=== PATIENT | female | born 1990 | race Caucasian/White ===

== ENCOUNTER → 2017-09-16 23:05 | Observation (INO) ==
--- NOTE | 2017-09-16 22:31 | OB/GYN Progress Note ---
Date of Encounter: 09/16/17 Time of Encounter: 22:30 - Assessment and Plan (1) 28 weeks gestation of Current Visit: Yes Status: Acute patient is a 27y/o @ 28 weeks presented for decreased FM, FHT CAT 1, no LOF, VB or ctxs ok for discharge Objective - Vital Signs Vital Signs: Intake and Output 09/16/17 09/16/17 09/16/17 07:59 15:59 23:59 Other: Weight 110 kg Patient Weight 09/16/17 23:59 Weight 110 kg
[2017-09-16 22:41] LABS: Bilirubin,Urine Negative (Negative); Blood,Urine Negative (Negative); Clarity,Urine Clear (Clear); Color,Urine Yellow (Yellow); Glucose,Urine (UA) Normal (Normal); Ketones,Urine Negative (Negative); Leukocyte Esterase,Urine Small (Negative); Nitrite,Urine Negative (Negative); PH,Urine 6.5 pH Units (5.0-8.0); Protein,Urine Negative (Neg-Trace); Specific Gravity,Urine 1.012 (1.010-1.025); Urobilinogen,Urine Normal (Normal)
[2017-09-16 22:44] LABS: Bacteria,Urine Few per hpf (None-Few); Hyaline Casts,Urine None Seen per lpf (None-Few); Squamous Epithelial Cell,Urine Many per lpf (None-Few)
[2017-09-16 22:48] LABS: Amphetamine Screen,Urine Negative ng/mL (Cutoff=1000); Barbiturate Screen,Urine Negative ng/mL (Cutoff=200); Benzodiazepines Screen,Urine Negative ng/mL (Cutoff=200); Cannabinoid Screen,Urine Negative ng/mL (Cutoff = 50); Cocaine Screen,Urine Negative ng/mL (Cutoff= 300); Opiate Screen,Urine Negative ng/mL (Cutoff=300); Phencyclidine Screen,Urine Negative ng/mL (Cutoff=25)
== END | disposition home or self-care (01) ==
LOC: 1NENULAB
PROVIDERS: ADMIT Student in an Organized Health Care Education/Training Program; ATTEND Student in an Organized Health Care Education/Training Program

== ENCOUNTER → 2017-09-29 22:15 | Observation (INO) ==
[2017-09-29 19:48] VITALS: BP 141/72
[2017-09-29 20:04] LABS: Bilirubin,Urine Negative (Negative); Blood,Urine Large (Negative); Clarity,Urine Cloudy (Clear); Color,Urine Yellow (Yellow); Glucose,Urine (UA) Normal (Normal); Ketones,Urine 15 mg/dL (Negative); Leukocyte Esterase,Urine Trace (Negative); Nitrite,Urine Negative (Negative); Protein,Urine Negative (Neg-Trace); Specific Gravity,Urine 1.012 (1.010-1.025); Urobilinogen,Urine Normal (Normal)
[2017-09-29 20:06] LABS: Bacteria,Urine Few per hpf (None-Few); Hyaline Casts,Urine None Seen per lpf (None-Few); Squamous Epithelial Cell,Urine Many per lpf (None-Few)
[2017-09-29 20:09] LABS: Amphetamine Screen,Urine Negative ng/mL (Cutoff=1000); Barbiturate Screen,Urine Negative ng/mL (Cutoff=200); Benzodiazepines Screen,Urine Negative ng/mL (Cutoff=200); Cannabinoid Screen,Urine Negative ng/mL (Cutoff = 50); Cocaine Screen,Urine Negative ng/mL (Cutoff= 300); Opiate Screen,Urine Negative ng/mL (Cutoff=300); Phencyclidine Screen,Urine Negative ng/mL (Cutoff=25)
[2017-09-29 20:19] LABS: RBC,Urine TNTC per hpf (0-3)
--- NOTE | 2017-09-29 20:49 | OB/GYN Progress Note ---
Date of Encounter: 09/29/17 Time of Encounter: 20:46 - Assessment and Plan (1) 29 weeks gestation of Current Visit: Yes Status: Acute Patient receives care with Dr. Chacon and [facility] (2) Abdominal pain affecting , antepartum Current Visit: Yes Status: Acute After exam, this is thought to be secondary to a UTI and hematuria. Patient is to increase oral fluids and will be given a prescription for antibiotics. Urine culture pending (3) Acute cystitis with hematuria Current Visit: Yes Status: Acute Culture pending. Start Macrobid as patient is allergic to cephalosporins and penicillin (4) History of delivery, currently in third trimester Current Visit: Yes Status: Acute labor warnings, pelvic rest and specifically no intercourse until after 34 weeks, currently on progesterone treatment without cervical change (5) GDM, class A2 Current Visit: Yes Status: Acute Patient is on metformin and is followed by [facility] Subjective - Subjective Principal diagnosis: 29 wks 5 d abdominal pain Interval history: The pt is a 27 y/o @29w5d who presents to labor and delivery with complaints of flank pain earlier today which changed to low back pain and suprapubic pain. She denies any gross hematuria. She reports a remote history of a kidney stone and never having had any UTIs. She reports some vaginal discharge but no vaginal bleeding. She has cramping on and off. She had a cervical length ultrasound which showed [address] Chacon last week. She had intercourse this morning. She reports that she has never been told to have pelvic rest. She has a history of 2 deliveries at 33 and 34 weeks and is currently on progesterone injections. She reports the fetus is active. Antepartum ROS: movement normal, contractions, no loss of fluid, no vaginal bleeding Objective - Vital Signs Vital Signs: Vital Signs Temp Pulse Resp BP 09/29/17 19:37 97.6 F 96 16 141/72 Intake and Output 09/29/17 09/29/17 09/29/17 07:59 15:59 23:59 Other: Weight 110 kg Patient Weight 09/29/17 23:59 Weight 110 kg - Exam FHR: auscultation normal FHR comments: 140s baseline, reassuring, rare ctx Auscultation: bilateral: normal Abdomen: Present: soft, gravid. Absent: tenderness Uterus: Absent: tenderness Cervical dilation: Closed Cervix effacement: Thick station: High Comments: Physiologic discharge, vaginosis panel obtained, no bleeding noted, no cervical lesions - Labs Labs: Abnormal lab results Urine Clarity Cloudy (Clear) A 09/29/17 19:50 Urine Ketones 15 mg/dL (Negative) H 09/29/17 19:50 Urine Blood Large (Negative) H 09/29/17 19:50 Ur Leukocyte Esterase Trace (Negative) H 09/29/17 19:50 Urine Microscopic RBC TNTC per hpf (0-3) H 09/29/17 19:50 Urine Microscopic WBC 5-15 per hpf (0-3) H 09/29/17 19:50 Ur Squamous Epith Cells Many per lpf (None-Few) H 09/29/17 19:50 Ur Culture Indicated? YES (NO) A 09/29/17 19:50 - Allied health notes Allied health notes reviewed: nursing
[2017-09-29 21:46] LABS: Trichomonas DNA Not Detected (Not Detect)
[2017-09-29 21:47] LABS: Candida DNA Not Detected (Not Detect); Gardnerella DNA ***DETECTED*** (Not Detect)
[~2017-09-29 22:15] MED LIST: Acetaminophen 325 MG TABLET PO ONE; Nitrofurantoin (BID) 100 MG CAPSULE PO SCH
== END | disposition home or self-care (01) ==
LOC: 1NENULAB
PROVIDERS: ADMIT Obstetrics & Gynecology; ATTEND Obstetrics & Gynecology

== ENCOUNTER → 2017-10-14 00:43 | Observation (INO) ==
[2017-10-13 22:45] LABS: Bilirubin,Urine Small (Negative); Blood,Urine Negative (Negative); Clarity,Urine Clear (Clear); Color,Urine Dark Yellow (Yellow); Glucose,Urine (UA) Normal (Normal); Ketones,Urine 40 mg/dL (Negative); Leukocyte Esterase,Urine Negative (Negative); Nitrite,Urine Negative (Negative); Protein,Urine Negative (Neg-Trace); Specific Gravity,Urine 1.022 (1.010-1.025)
[2017-10-13 22:50] LABS: Amphetamine Screen,Urine Negative ng/mL (Cutoff=1000); Barbiturate Screen,Urine Negative ng/mL (Cutoff=200); Benzodiazepines Screen,Urine Negative ng/mL (Cutoff=200); Cannabinoid Screen,Urine Negative ng/mL (Cutoff = 50); Cocaine Screen,Urine Negative ng/mL (Cutoff= 300); Opiate Screen,Urine Negative ng/mL (Cutoff=300); Phencyclidine Screen,Urine Negative ng/mL (Cutoff=25)
[2017-10-13 22:52] LABS: Basophils % 0.1 %; Eosinophils # 0.2 K/mcL (0.0-0.6); Hematocrit 30.3 % (35.3-44.9); Hemoglobin 10.2 g/dL (11.5-15.4); Immature Granulocytes % 0.7 % (0-4); Lymphocytes # 1.9 K/mcL (0.6-4.6); Lymphocytes % 22.4 %; Mean Corpuscular HGB Conc 33.7 g/dL (31.6-35.5); Mean Corpuscular Hemoglobin 30.7 pg (28.0-33.3); Mean Corpuscular Volume 91.3 fL (83.0-100.0); Mean Platelet Volume 9.6 fL (9.4-12.4); Monocytes # 0.7 K/mcL (0.0-1.3); Monocytes % 8.7 %; Neutrophils # 5.5 K/mcL (1.6-8.9); Platelet Count 146 K/mcL (140-400); Red Blood Count 3.32 M/mcL (3.82-4.97); Red Cell Distribution Width 16.8 % (11.5-14.5); Segmented Neutrophils % 66.1 %
[2017-10-13 23:00] LABS: Protein/Creatinine Ratio,Urine 0.12 mg/mg (0-0.20)
[2017-10-13 23:03] LABS: Alanine Aminotransferase 12 Units/L (0-55); Aspartate Amino Transferase 14 Units/L (5-34); BUN/Creatinine Ratio 13 (6-26); Blood Urea Nitrogen 7 mg/dL (7-20); Lactate Dehydrogenase 228 Units/L (159-327); Uric Acid 4.7 mg/dL (2.6-6.0); eGFR For African Americans > 60 (> 60); eGFR For Non-African Americans > 60 (> 60)
--- NOTE | 2017-10-14 00:13 | OB/GYN Progress Note ---
Date of Encounter: 10/14/17 Time of Encounter: 00:09 - Assessment and Plan (1) 31 weeks gestation of Current Visit: Yes Status: Acute (2) induced hypertension Current Visit: Yes Status: Acute Pt with recent increase in BP above her baseline. This evening bp's stable and acceptable on l&D. She has off and on GUEVARA but has tried no meds. PIH labs WNL Qualifiers: Trimester: third trimester Qualified Code(s): O13.3 - Gestational [ -induced] hypertension without significant proteinuria, third trimester (3) History of delivery, currently in third trimester Current Visit: No Status: Acute Pt with irritability on the monitor. Will give Procardia x 1. Her cervix was 2.9 cm yest at [facility] and is closed and thick today. Subjective - Subjective Principal diagnosis: uc's and elevated bp's at [employer] while shopping. Interval history: 27 yo female at 31 w 4d presents with c/o elevated bp 140's/90's while shopping at [employer]. She also c/o GUEVARA that is off and on, pt also reports sinus congestion. Pt also reports some cramps and has h/o delivery x 2. She reports + GFM, no vb or lof Objective - Vital Signs Vital Signs: Intake and Output 10/13/17 10/13/17 10/14/17 15:59 23:59 07:59 Other: Weight 107.7 kg - Exam FHR: category 1 Auscultation: bilateral: normal Abdomen: Present: gravid Uterus: Present: other (non-tender) Cervical dilation: cl Cervix effacement: thick station: -2 - Labs Labs: Abnormal lab results RBC 3.32 M/mcL (3.82-4.97) L 10/13/17 22:37 Hgb 10.2 g/dL (11.5-15.4) L 10/13/17 22:37 Hct 30.3 % (35.3-44.9) L 10/13/17 22:37 RDW 16.8 % (11.5-14.5) H 10/13/17 22:37 Creatinine 0.53 mg/dL (0.57-1.11) L 10/13/17 22:37 Urine Ketones 40 mg/dL (Negative) H 10/13/17 22:35 Urine Bilirubin Small (Negative) H 10/13/17 22:35 Urine Urobilinogen 4.0 mg/dL (Normal) H 10/13/17 22:35
[~2017-10-14 00:43] MED LIST changes: -Acetaminophen 325 MG TABLET PO ONE; +NIFEdipine 10 MG CAPSULE PO ONE; -Nitrofurantoin (BID) 100 MG CAPSULE PO SCH
== END | disposition home or self-care (01) ==
LOC: 1NENULAB
PROVIDERS: ADMIT Obstetrics & Gynecology; ATTEND Obstetrics & Gynecology

== ENCOUNTER 2017-11-09 00:42 | Observation (INO) ==
[2017-11-08 23:24] LABS: Bilirubin,Urine Negative (Negative); Blood,Urine Small (Negative); Color,Urine Yellow (Yellow); Glucose,Urine (UA) Normal (Normal); Ketones,Urine Negative (Negative); Leukocyte Esterase,Urine Negative (Negative); Nitrite,Urine Negative (Negative); PH,Urine 6.5 pH Units (5.0-8.0); Protein,Urine Negative (Neg-Trace); Specific Gravity,Urine 1.022 (1.010-1.025); Urobilinogen,Urine Normal (Normal)
[2017-11-08 23:26] LABS: Bacteria,Urine Few per hpf (None-Few); Hyaline Casts,Urine None Seen per lpf (None-Few); RBC,Urine 0-3 per hpf (0-3); Squamous Epithelial Cell,Urine Many per lpf (None-Few)
[2017-11-08 23:27] LABS: Clarity,Urine Hazy (Clear)
[2017-11-08 23:29] LABS: Amphetamine Screen,Urine Negative ng/mL (Cutoff=1000); Barbiturate Screen,Urine Negative ng/mL (Cutoff=200); Benzodiazepines Screen,Urine Negative ng/mL (Cutoff=200); Cannabinoid Screen,Urine Negative ng/mL (Cutoff = 50); Cocaine Screen,Urine Negative ng/mL (Cutoff= 300); Opiate Screen,Urine Negative ng/mL (Cutoff=300); Phencyclidine Screen,Urine Negative ng/mL (Cutoff=25)
--- NOTE | 2017-11-09 00:04 | OB/GYN Progress Note ---
Date of Encounter: 11/09/17 Time of Encounter: 23:10 - Assessment and Plan (1) Vaginal discharge during Current Visit: Yes Status: Acute Nitrazine equivocal. Ferning negative. UDS negative, UA negative, Vaginosis panel negative Cervix 4/50 per gold marker exam - no change after 2 hours FHT - Baseline 145 with variability and accels - Category I, NST reactive Pt can be discharged home with labor precautions I have seen and evaluated pt with resident physician. I agree with the plan as outlined. Qualifiers: Trimester: third trimester Qualified Code(s): O26.893 - Other specified related conditions, third trimester; N89.8 - Other specified noninflammatory disorders of vagina; N89.8 - Other specified noninflammatory disorders of vagina (2) 35 weeks gestation of Current Visit: Yes Status: Acute (3) History of delivery, currently in third trimester Current Visit: No Status: Acute Pt has been getting progesterone. Reports her final dose is due tomorrow Subjective - Subjective Principal diagnosis: Leakage of fluid Interval history: Ms. Torre is a 27 year old at 35w3d presenting to L&D with concerns of leaking fluid. She reports that around 1630 this afternoon she began leaking a small amount of fluid. She reports a few contractions soon after that time, 4 contractions at 4 minutes apart, but then they became much more irregular and spaced further apart. She reports good movement. She denies vaginal bleeding. She reports intercourse within the past 48 hours. This has been complicated by Gestational DM, on Metformin and Insulin, and proteinuria with negative work-up. She has a history of delivery with both prior pregnancies, at 32 and 33 weeks, and a history of preeclampsia in a prior . She has been getting progesterone during this . She denies fevers, chills, headaches, blurry vision, chest pain, dyspnea, abdominal pain, dysuria, or edema. Antepartum ROS: loss of fluid, movement normal, contractions, no vaginal bleeding Objective - Vital Signs Vital Signs: Intake and Output 11/08/17 11/08/17 11/08/17 07:59 15:59 23:59 Other: Weight 111.8 kg Patient Weight 11/08/17 23:59 Weight 111.8 kg - Exam FHR: auscultation normal, category 1 Auscultation: bilateral: normal Abdomen: Present: normal appearance, soft, gravid Uterus: Present: normal, firm Cervical dilation: 4 cm per gold marker Cervix effacement: 50 - Labs Labs: Abnormal lab results Urine Clarity Hazy (Clear) A 11/08/17 23:00 Urine Blood Small (Negative) H 11/08/17 23:00 Urine Microscopic WBC 3-5 per hpf (0-3) H 11/08/17 23:00 Ur Squamous Epith Cells Many per lpf (None-Few) H 11/08/17 23:00
[2017-11-09 00:22] LABS: Gardnerella DNA Not Detected (Not Detect); Trichomonas DNA Not Detected (Not Detect)
[2017-11-09 00:23] LABS: Candida DNA Not Detected (Not Detect)
== END 2017-11-09 00:48 | disposition home or self-care (01) ==
LOC: 1NENULAB
PROVIDERS: ADMIT Student in an Organized Health Care Education/Training Program; ATTEND Student in an Organized Health Care Education/Training Program

== ENCOUNTER → 2017-11-10 08:50 | Observation (INO) ==
[2017-11-09 22:57] VITALS: BP 149/91
--- NOTE | 2017-11-09 23:20 | OB/GYN Progress Note ---
Date of Encounter: 11/10/17 Time of Encounter: 23:16 - Assessment and Plan (1) Pelvic pressure in Current Visit: Yes Status: Acute No LOF, vaginal bleeding, vaginal discharge. Irregular contractions Cervix 4cm per RN - no change from last evening FHT - Baseline 140 with variability and accels - Category I, NST reactive Gans irregular No elevated Temp BP elevated 140-150's/80-90's initially - No symptoms of preeclampsia PIH labs negative, Urine Cr/Prot ratio 0.16 (2) 35 weeks gestation of Current Visit: Yes Status: Acute (3) History of delivery, currently in third trimester Current Visit: Yes Status: Acute Subjective - Subjective Principal diagnosis: Pelvic Pressure Interval history: Ms. Torre is a 27 year old at 35w4d presenting to L&D with concerns of pelvic pressure. She reports that she has also had some episodes of shakiness , but her blood sugar was not low, and flushing and chills. She reports good movement. She denies vaginal bleeding. This has been complicated by Gestational DM, on Metformin and Insulin, and proteinuria with negative work-up. She has a history of delivery with both prior pregnancies, at 32 and 33 weeks, and a history of preeclampsia in a prior . She has been getting progesterone during this . She denies fevers, headaches, blurry vision, chest pain, dyspnea, abdominal pain, dysuria, or edema. Antepartum ROS: movement normal, contractions, no loss of fluid, no vaginal bleeding Objective - Vital Signs Vital Signs: Vital Signs Pulse Resp BP 11/09/17 22:48 84 15 149/91 Intake and Output 11/09/17 11/09/17 11/09/17 07:59 15:59 23:59 Other: Weight 111.4 kg Patient Weight 11/09/17 23:59 Weight 111.4 kg - Exam FHR: auscultation normal, category 1 FHR comments: Baseline 140 with moderate variability and accels no decels noted- Category I Gans irregular I examined this patient and my medical decision-making was reviewed with the Resident Physician. I agree with the documented findings, disposition and treatment plan as described except to the extent set forth below. KRYS Crews Auscultation: bilateral: normal Abdomen: Present: normal appearance, soft, gravid. Absent: tenderness Uterus: Present: normal, firm Cervical dilation: 4 cm per RN
[2017-11-10 00:24] LABS: Basophils % 0.2 %; Eosinophils # 0.3 K/mcL (0.0-0.6); Eosinophils % 3.2 %; Hematocrit 33.2 % (35.3-44.9); Hemoglobin 11.1 g/dL (11.5-15.4); Immature Granulocytes % 0.6 % (0-4); Lymphocytes # 2.2 K/mcL (0.6-4.6); Lymphocytes % 21.5 %; Mean Corpuscular HGB Conc 33.4 g/dL (31.6-35.5); Mean Corpuscular Hemoglobin 30.4 pg (28.0-33.3); Mean Platelet Volume 9.5 fL (9.4-12.4); Monocytes # 0.8 K/mcL (0.0-1.3); Monocytes % 7.5 %; Neutrophils # 6.7 K/mcL (1.6-8.9); Platelet Count 160 K/mcL (140-400); Red Blood Count 3.65 M/mcL (3.82-4.97); Red Cell Distribution Width 17.4 % (11.5-14.5)
[2017-11-10 00:37] LABS: Alanine Aminotransferase 14 Units/L (0-55); Aspartate Amino Transferase 16 Units/L (5-34); BUN/Creatinine Ratio 10 (6-26); Blood Urea Nitrogen 6 mg/dL (7-20); Lactate Dehydrogenase 250 Units/L (159-327); Uric Acid 5.2 mg/dL (2.6-6.0); eGFR For African Americans > 60 (> 60); eGFR For Non-African Americans > 60 (> 60)
[2017-11-10 00:44] LABS: Amphetamine Screen,Urine Negative ng/mL (Cutoff=1000); Barbiturate Screen,Urine Negative ng/mL (Cutoff=200); Benzodiazepines Screen,Urine Negative ng/mL (Cutoff=200); Cannabinoid Screen,Urine Negative ng/mL (Cutoff = 50); Cocaine Screen,Urine Negative ng/mL (Cutoff= 300); Opiate Screen,Urine Negative ng/mL (Cutoff=300); Phencyclidine Screen,Urine Negative ng/mL (Cutoff=25)
[2017-11-10 00:45] LABS: Protein/Creatinine Ratio,Urine 0.16 mg/mg (0-0.20)
--- NOTE | 2017-11-10 08:29 | Discharge Summary ---
Date of Encounter: 11/10/17 Time of Encounter: 08:29 - Discharge Diagnosis (1) uterine contractions in third trimester, antepartum Priority: Primary Status: Acute Comments: No cervical change PIH labs normal - BP normal Discharge home with labor precautions Follow up with routine care and prn. NST scheduled on Sunday (2) 35 weeks gestation of Priority: Secondary Status: Acute - Discharge Medications Home Medications: Metformin HCl [Fortamet] 500 mg PO BID 09/16/17 [History] Tablet 1 tab PO DAILY 09/16/17 [History] Progesterone IM QWEEK 09/16/17 [History] Nitrofurantoin [Macrodantin] 100 mg PO BIDWM #14 capsule 09/29/17 [Rx] Allergies/Adverse Reactions: 3 Allergy/AdvReac Type Severity Reaction Status Date / Time Cefaclor [From [facility]] Allergy Hives Verified 09/16/17 22:20 Penicillins AdvReac Vomiting Verified 07/12/16 23:06 Data Procedures and tests throughout hospitalization: Laboratory Tests 11/10/17 11/10/17 11/10/17 00:15 00:15 00:26 WBC 10.1 RBC 3.65 L Hgb 11.1 L Hct 33.2 L MCV 91.0 MCH 30.4 MCHC 33.4 RDW 17.4 H Plt Count 160 MPV 9.5 Immature Gran % 0.6 Seg Neutrophils % 67.0 Lymphocytes % 21.5 Monocytes % 7.5 Eosinophils % 3.2 Basophils % 0.2 Neutrophils # 6.7 Lymphocytes # 2.2 Monocytes # 0.8 Eosinophils # 0.3 Basophils # 0.0 BUN 6 L Creatinine 0.59 Est GFR ( Amer) > 60 Est GFR (Non-Af Amer) > 60 BUN/Creatinine Ratio 10 Uric Acid 5.2 AST 16 ALT 14 Lactate Dehydrogenase 250 Urine Creatinine Protein/Creatinin Ratio Urine Total Protein Urine Opiates Screen Negative Ur Barbiturates Screen Negative Ur Phencyclidine Scrn Negative Ur Amphetamines Screen Negative U Benzodiazepines Scrn Negative Urine Cocaine Screen Negative U Marijuana (THC) Screen Negative 11/10/17 00:26 WBC RBC Hgb Hct MCV MCH MCHC RDW Plt Count MPV Immature Gran % Seg Neutrophils % Lymphocytes % Monocytes % Eosinophils % Basophils % Neutrophils # Lymphocytes # Monocytes # Eosinophils # Basophils # BUN Creatinine Est GFR ( Amer) Est GFR (Non-Af Amer) BUN/Creatinine Ratio Uric Acid AST ALT Lactate Dehydrogenase Urine Creatinine 174 Protein/Creatinin Ratio 0.16 Urine Total Protein 27 H Urine Opiates Screen Ur Barbiturates Screen Ur Phencyclidine Scrn Ur Amphetamines Screen U Benzodiazepines Scrn Urine Cocaine Screen U Marijuana (THC) Screen Labs on day of discharge: Labs from last 24 hours 11/10/17 11/10/17 11/10/17 00:26 00:26 00:15 WBC RBC Hgb Hct MCV MCH MCHC RDW Plt Count MPV Immature Gran % Seg Neutrophils % Lymphocytes % Monocytes % Eosinophils % Basophils % Neutrophils # Lymphocytes # Monocytes # Eosinophils # Basophils # BUN 6 L Creatinine 0.59 Est GFR ( Amer) > 60 Est GFR (Non-Af Amer) > 60 BUN/Creatinine Ratio 10 Uric Acid 5.2 AST 16 ALT 14 Lactate Dehydrogenase 250 Urine Creatinine 174 Protein/Creatinin Ratio 0.16 Urine Total Protein 27 H Urine Opiates Screen Negative Ur Barbiturates Screen Negative Ur Phencyclidine Scrn Negative Ur Amphetamines Screen Negative U Benzodiazepines Scrn Negative Urine Cocaine Screen Negative U Marijuana (THC) Screen Negative 11/10/17 00:15 WBC 10.1 RBC 3.65 L Hgb 11.1 L Hct 33.2 L MCV 91.0 MCH 30.4 MCHC 33.4 RDW 17.4 H Plt Count 160 MPV 9.5 Immature Gran % 0.6 Seg Neutrophils % 67.0 Lymphocytes % 21.5 Monocytes % 7.5 Eosinophils % 3.2 Basophils % 0.2 Neutrophils # 6.7 Lymphocytes # 2.2 Monocytes # 0.8 Eosinophils # 0.3 Basophils # 0.0 BUN Creatinine Est GFR ( Amer) Est GFR (Non-Af Amer) BUN/Creatinine Ratio Uric Acid AST ALT Lactate Dehydrogenase Urine Creatinine Protein/Creatinin Ratio Urine Total Protein Urine Opiates Screen Ur Barbiturates Screen Ur Phencyclidine Scrn Ur Amphetamines Screen U Benzodiazepines Scrn Urine Cocaine Screen U Marijuana (THC) Screen Date of admission: 11/09/17 22:36 Discharging clinician: Kristy Rivera Anticipated date of discharge: 11/10/17 - Patient Status Disposition: Home, Self-Care Condition: Good Functional capacity at discharge: independent ambulation Overall status at discharge: patient is back to baseline - Discharge Instructions Follow Up With: Andres Chaocn MD [Partnered Physician] - - Diet and Activity Activity: increase activity as tolerated Diet: regular diet Hospital Course [employer] Reason for admission: other ( contractions) Discharge diagnosis: other ( contractions) Time Attestation: Total time spent providing and/or coordinating discharge services: Time Spent: Less than 30 minutes Exam - Constitutional Vitals: Pulse Resp BP 84 15 149/91 11/09/17 22:48 11/09/17 22:48 11/09/17 22:48 General appearance IM: cooperative, A&O X 3, pleasant - Additional comments: 4-5/50/high FHTs Category I 130's Uterine irritability on toco. - Extremities Exam Extremities exam IM: Present: normal capillary refill, normal inspection, radial pulses palpable and symmetrical - Neurological Exam Neurological exam: alert, oriented X3 - VTE Reasons for not Prescribing Prophylaxis: Treatment not Indicated - Low risk for VTE
== END | disposition home or self-care (01) ==
LOC: 1NENULAB
PROVIDERS: ADMIT Obstetrics & Gynecology; ATTEND Obstetrics & Gynecology

== ENCOUNTER → 2017-11-15 12:30 | Observation (INO) ==
[2017-11-15 12:39] LABS: Basophils % 0.2 %; Eosinophils # 0.2 K/mcL (0.0-0.6); Eosinophils % 2.4 %; Hematocrit 32.9 % (35.3-44.9); Immature Granulocytes % 0.7 % (0-4); Lymphocytes # 1.5 K/mcL (0.6-4.6); Lymphocytes % 15.9 %; Mean Corpuscular HGB Conc 33.4 g/dL (31.6-35.5); Mean Corpuscular Hemoglobin 30.7 pg (28.0-33.3); Mean Corpuscular Volume 91.9 fL (83.0-100.0); Mean Platelet Volume 9.8 fL (9.4-12.4); Monocytes # 0.8 K/mcL (0.0-1.3); Monocytes % 8.2 %; Neutrophils # 6.9 K/mcL (1.6-8.9); Platelet Count 156 K/mcL (140-400); Red Blood Count 3.58 M/mcL (3.82-4.97); Red Cell Distribution Width 17.2 % (11.5-14.5); Segmented Neutrophils % 72.6 %
[2017-11-15 12:57] LABS: Protein/Creatinine Ratio,Urine 0.18 mg/mg (0.00-0.20)
[2017-11-15 13:01] LABS: Alanine Aminotransferase 10 Units/L (7-52); Amphetamine Screen,Urine Negative ng/mL (Cutoff=1000); Aspartate Amino Transferase 14 Units/L (13-39); BUN/Creatinine Ratio 16 (6-26); Barbiturate Screen,Urine Negative ng/mL (Cutoff=200); Benzodiazepines Screen,Urine Negative ng/mL (Cutoff=200); Blood Urea Nitrogen 8 mg/dL (6-20); Cannabinoid Screen,Urine Negative ng/mL (Cutoff = 50); Cocaine Screen,Urine Negative ng/mL (Cutoff= 300); Lactate Dehydrogenase 186 Units/L (140-271); Opiate Screen,Urine Negative ng/mL (Cutoff=300); Phencyclidine Screen,Urine Negative ng/mL (Cutoff=25); Uric Acid 5.7 mg/dL (2.3-7.6); eGFR For African Americans > 60 (> 60); eGFR For Non-African Americans > 60 (> 60)
--- NOTE | 2017-11-15 13:24 | Discharge Summary ---
Date of Encounter: 11/15/17 Time of Encounter: 13:24 - Discharge Diagnosis (1) 36 weeks gestation of Priority: Primary Status: Acute Comments: admitted for labor evaluation (2) GDM, class A2 Priority: Secondary Status: Acute Comments: Insulin dependant (3) uterine contractions in third trimester, antepartum Priority: Secondary Status: Acute Comments: false labor no cervical change (4) Gestational hypertension Priority: Secondary Status: Acute Comments: PIH labs and BPs with in normal limits Qualifiers: Trimester: third trimester Qualified Code(s): O13.3 - Gestational [ -induced] hypertension without significant proteinuria, third trimester - Discharge Medications Home Medications: Metformin HCl [Fortamet] 500 mg PO BID 09/16/17 [History] Tablet 1 tab PO DAILY 09/16/17 [History] Progesterone IM QWEEK 09/16/17 [History] Nitrofurantoin [Macrodantin] 100 mg PO BIDWM #14 capsule 09/29/17 [Rx] Allergies/Adverse Reactions: 3 Allergy/AdvReac Type Severity Reaction Status Date / Time Cefaclor [From [facility]] Allergy Hives Verified 09/16/17 22:20 Penicillins AdvReac Vomiting Verified 07/12/16 23:06 Data Procedures and tests throughout hospitalization: Laboratory Tests 11/15/17 11/15/17 11/15/17 12:15 12:15 12:15 WBC 9.5 RBC 3.58 L Hgb 11.0 L Hct 32.9 L MCV 91.9 MCH 30.7 MCHC 33.4 RDW 17.2 H Plt Count 156 MPV 9.8 Immature Gran % 0.7 Seg Neutrophils % 72.6 Lymphocytes % 15.9 Monocytes % 8.2 Eosinophils % 2.4 Basophils % 0.2 Neutrophils # 6.9 Lymphocytes # 1.5 Monocytes # 0.8 Eosinophils # 0.2 Basophils # 0.0 BUN 8 Creatinine 0.51 L Est GFR ( Amer) > 60 Est GFR (Non-Af Amer) > 60 BUN/Creatinine Ratio 16 Uric Acid 5.7 AST 14 ALT 10 Lactate Dehydrogenase 186 Urine Creatinine Protein/Creatinin Ratio Urine Total Protein Urine Opiates Screen Negative Ur Barbiturates Screen Negative Ur Phencyclidine Scrn Negative Ur Amphetamines Screen Negative U Benzodiazepines Scrn Negative Urine Cocaine Screen Negative U Marijuana (THC) Screen Negative 11/15/17 12:15 WBC RBC Hgb Hct MCV MCH MCHC RDW Plt Count MPV Immature Gran % Seg Neutrophils % Lymphocytes % Monocytes % Eosinophils % Basophils % Neutrophils # Lymphocytes # Monocytes # Eosinophils # Basophils # BUN Creatinine Est GFR ( Amer) Est GFR (Non-Af Amer) BUN/Creatinine Ratio Uric Acid AST ALT Lactate Dehydrogenase Urine Creatinine 99 Protein/Creatinin Ratio 0.18 Urine Total Protein 18 Urine Opiates Screen Ur Barbiturates Screen Ur Phencyclidine Scrn Ur Amphetamines Screen U Benzodiazepines Scrn Urine Cocaine Screen U Marijuana (THC) Screen Labs on day of discharge: Labs from last 24 hours 11/15/17 11/15/17 11/15/17 12:15 12:15 12:15 WBC 9.5 RBC 3.58 L Hgb 11.0 L Hct 32.9 L MCV 91.9 MCH 30.7 MCHC 33.4 RDW 17.2 H Plt Count 156 MPV 9.8 Immature Gran % 0.7 Seg Neutrophils % 72.6 Lymphocytes % 15.9 Monocytes % 8.2 Eosinophils % 2.4 Basophils % 0.2 Neutrophils # 6.9 Lymphocytes # 1.5 Monocytes # 0.8 Eosinophils # 0.2 Basophils # 0.0 BUN 8 Creatinine 0.51 L Est GFR ( Amer) > 60 Est GFR (Non-Af Amer) > 60 BUN/Creatinine Ratio 16 Uric Acid 5.7 AST 14 ALT 10 Lactate Dehydrogenase 186 Urine Creatinine 99 Protein/Creatinin Ratio 0.18 Urine Total Protein 18 Urine Opiates Screen Ur Barbiturates Screen Ur Phencyclidine Scrn Ur Amphetamines Screen U Benzodiazepines Scrn Urine Cocaine Screen U Marijuana (THC) Screen 11/15/17 12:15 WBC RBC Hgb Hct MCV MCH MCHC RDW Plt Count MPV Immature Gran % Seg Neutrophils % Lymphocytes % Monocytes % Eosinophils % Basophils % Neutrophils # Lymphocytes # Monocytes # Eosinophils # Basophils # BUN Creatinine Est GFR ( Amer) Est GFR (Non-Af Amer) BUN/Creatinine Ratio Uric Acid AST ALT Lactate Dehydrogenase Urine Creatinine Protein/Creatinin Ratio Urine Total Protein Urine Opiates Screen Negative Ur Barbiturates Screen Negative Ur Phencyclidine Scrn Negative Ur Amphetamines Screen Negative U Benzodiazepines Scrn Negative Urine Cocaine Screen Negative U Marijuana (THC) Screen Negative Date of admission: 11/15/17 11:45 Primary care physician: PCP NONE Discharging clinician: Giuliana Lynn Anticipated date of discharge: 11/15/17 - Patient Status Disposition: Home, Self-Care Condition: Good Functional capacity at discharge: independent ambulation - Discharge Instructions Follow Up With: NONE,PCP [Primary Care Provider] - Andres Chacon MD [Partnered Physician] - - Diet and Activity Activity: increase activity as tolerated Diet: regular diet Hospital Course [facility] Hospital course: Patient is a 27 y/o at 36w3d presents to labor and delivery from the office for Labor and PIH evaluation. Patient reports irregular contractions, denies LOF, VB, headache or visual disturbances. Patient reports +FM. Time Attestation: Total time spent providing and/or coordinating discharge services: Time Spent: Less than 30 minutes Exam - Constitutional General appearance IM: A&O X 3, pleasant, answers questions appropriately - Respiratory Respiratory exam: Present: CTAB - Cardiovascular Cardiovascular exam IM: Present: RRR, +S1, +S2 - GI/Abdominal GI/Abdominal exam IM: normal bowel sounds - Extremities Exam Extremities exam IM: Present: full ROM, normal capillary refill, normal inspection - Neurological Exam Neurological exam: alert, oriented X3, reflexes normal - Other Additional findings: FHR 140 bpm moderate variability, irregular contractions noted No cervical change. SVE 4cm and thick per RN - VTE Reasons for not Prescribing Prophylaxis: Treatment not Indicated - Low risk for VTE
== END | disposition home or self-care (01) ==
LOC: 1NENULAB
PROVIDERS: ADMIT Obstetrics & Gynecology; ATTEND Obstetrics & Gynecology

== ENCOUNTER → 2017-11-17 13:52 | Observation (INO) ==
--- NOTE | 2017-11-17 13:32 | Discharge Summary ---
Date of Encounter: 11/17/17 Time of Encounter: 13:31 - Discharge Diagnosis (1) Decreased movement Priority: Primary Status: Acute Comments: Patient reports feeling movement Qualifiers: Fetus number: single or unspecified fetus Trimester: third trimester Qualified Code(s): O36.8130 - Decreased movements, third trimester, not applicable or unspecified (2) NST (non-stress test) reactive on surveillance Priority: Secondary Status: Acute Comments: baslein 140 bpm moderate variability +15x15 accels no decels noted. - Discharge Medications Home Medications: Metformin HCl [Fortamet] 1,000 mg PO BID 09/16/17 [History] Tablet 1 tab PO DAILY 09/16/17 [History] Progesterone 1 IM QWEEK 09/16/17 [History] Insulin Lispro Protamin/Lispro [Humalog Mix 75-25 Kwikpen] 6 units SQ BID [History] Allergies/Adverse Reactions: 3 Allergy/AdvReac Type Severity Reaction Status Date / Time Cefaclor [From Ceclor] Allergy Hives Verified 11/17/17 12:22 Penicillins AdvReac Hives Verified 11/17/17 12:22 Date of admission: 11/17/17 12:03 Discharging clinician: Giuliana Lynn Anticipated date of discharge: 11/17/17 - Patient Status Disposition: Home, Self-Care Condition: Good Functional capacity at discharge: independent ambulation - Discharge Instructions Follow Up With: Andres Chacon MD [Partnered Physician] - - Diet and Activity Activity: increase activity as tolerated Diet: diabetic diet Hospital Course [employer] Hospital course: Patient is a 27 y/o at 36w5 presents to labor and delivery with complaints of decreased movement. Patient states she has felt movement and had 10 kick counts in an hour but it felt less than usual. Patient reports she was having contractions last night but only reports an occasional cramp today. Patient denies LOF or VB. Patient denies headache, visual disturbances or epigastric pain. Time Attestation: Total time spent providing and/or coordinating discharge services: Time Spent: Less than 30 minutes Exam - Constitutional General appearance IM: A&O X 3, pleasant, answers questions appropriately - Other Additional findings: FHR 140 bpm moderate variability +15x15 accels no decels noted. No contractions noted - VTE Reasons for not Prescribing Prophylaxis: Treatment not Indicated - Low risk for VTE
== END | disposition home or self-care (01) ==
LOC: 1NENULAB
PROVIDERS: ADMIT Advanced Practice Midwife; ATTEND Advanced Practice Midwife

== ENCOUNTER 2017-11-27 08:00 | Inpatient (IN) ==
[2017-11-27] MEDS ORDERED: Naloxone 0.4 MG/ML INJ IVP PRN ×2 (08:22→19:32)
[2017-11-27] MEDS ORDERED: *HR* Nalbuphine 20 MG/ML AMPUL IVP PRN (08:22)
[2017-11-27] MEDS ORDERED: Ondansetron 4 MG/2 ML VIAL IVP PRN ×2 (08:22→19:32)
[2017-11-27] MEDS ORDERED: Famotidine 20 MG/2 ML VIAL IVP PRN (08:22)
[2017-11-27] MEDS ORDERED: Oxytocin 20 units/ LR 1000 mL 20 UNIT/1,000 ML BAG IVC SCH ×2 (08:30→23:47)
--- NOTE | 2017-11-27 09:09 | OB/GYN History & Physical ---
Date of Encounter: 11/27/17 Time of Encounter: 10:40 Assessment and Plan (1) Elective induction of labor planned Current visit: Yes Status: Acute Plan: - admit to labor and delivery - begin FHT - patient plans for epidural - expectant management. Induction with pitocin. Augment with AROM - Accu checks Q2hr - anticipate (2) 38 weeks gestation of Current visit: Yes Status: Acute (3) Gestational diabetes Current visit: Yes Status: Acute Qualifiers: Gestational diabetes mellitus control: insulin-controlled Trimester: third trimester Qualified Code(s): O24.414 - Gestational diabetes mellitus in , insulin controlled (4) Obesity, morbid, BMI 40.0-49.9 Current visit: Yes Status: Acute (5) Susceptible to varicella (non-immune), currently Current visit: Yes Status: Acute (6) Proteinuria affecting in third trimester Current visit: Yes Status: Acute (7) History of delivery, currently in third trimester Current visit: No Status: Acute (8) 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 Torre is a 27 y/o female at 38+1 weeks presented to labor and delivery for induction of labor. Patient's is complicated by gestational diabetes insulin dependent, obesity, proteinuria, hx of delivery (33 weeks). Reports active movement. Patient's blood glucoses have been controlled on insulin and metformin with morning glucoses of 90-95. Patient states that she has not taken her Metformin for 2 days though. Patient was on progestin for deliveries. Patient denies vaginal bleeding, contractions, leakage of fluids. Denies N/V, changes in vision, GUEVARA. Patient follows up with Dr. Chacon. PNL: Blood type O+. GBS negative, RI, HBsAG neg, HIV neg. RPR neg. Past Med Surg Social Fam HX - Past Medical History Source: patient, old records reviewed Medical history: migraine Psychiatric history: no psych history - Past Surgical History Surgical History: other (tonsillectomy , tubes in ears , cyst removed behind right ear at age 15 , wisdom teeth extraction at age 16 , right knee surgery at age 16 , bilateral ovarian cysts removed at age 17 , bilateral tubal ligation ( BTL) 2010, bilateral tubal ligation reversal 02/2016. ) - Social History Smoking Status: Former smoker Smokeless Tobacco Status: No Alcohol use: none Drug use: none - Family History Sister Adopted: No Living Status: Still Living Hx Family Cardiac Disorders: No Hx Family Respiratory Disorders: No Hx Family Cancer: No Hx Family GI Disorders: No Hx Family Endocrine Disorder: No Hx Family Neuromuscular Disorders: No Hx Family Neurologic Disorders: No Hx Family HEENT Disorders: No Hx Family Autoimmune Disorders: No Father Adopted: No Age: 47 Living Status: Still Living Hx Family Cardiac Disorders: No Hx Family Respiratory Disorders: No Hx Family Cancer: No Hx Family GI Disorders: No Hx Family Genitourinary Disorders: No Hx Family Endocrine Disorder: Yes (diabetes type 2) Hx Family Musculoskeletal Disorders: No Hx Family Neuromuscular Disorders: No Hx Family Neurologic Disorders: No Hx Family HEENT Disorders: No Hx Family Autoimmune Disorders: No Hx Family Reproductive Disorders: No Hx Family Psychosocial Disorders: No Hx Family Medical Disorders: No Obstetrical History - Pregnancies : 3 Para: 2 Term: 2 : 0 Ab's: 0 Livin - History/Complications History/Complications: Total pregnancies 2. Total living children 2. # 1: 2008, vaginal delivery, 33 weeks, male, 5#; gestational diabetes mellitus. # 2: 2010 , vaginal delivery, 33 weeks, male, 7#. Medications and Allergies Metformin HCl [Fortamet] 1,000 mg PO BID 09/16/17 [History] Tablet 1 tab PO DAILY 09/16/17 [History] Progesterone 1 / IM QWEEK 09/16/17 [History] Insulin Lispro Protamin/Lispro [Humalog Mix 75-25 Kwikpen] 6 units SQ BID [History] 3 Allergy/AdvReac Type Severity Reaction Status Date / Time Cefaclor [From [facility]] Allergy Hives Verified 11/17/17 12:22 Penicillins AdvReac Hives Verified 11/17/17 12:22 Review of System OB All systems PM: reviewed and no additional remarkable complaints except as stated Exam - Vital Signs Vital signs: Blood pressure: 139/80, HR: 88. Blood pressure max systolic 148. - Constitutional Constitutional: well developed, well nourished, no acute distress - HEENT HEENT: Normocephaly, Mucus Membranes Moist - Neck Neck exam: full ROM - Lungs Respiratory exam: CTAB - Cardiovascular Cardiovascular exam: RRR - Breasts Breast: bilateral: normal - Abdomen Abdomen: Absent: guarding noted - Extremities Extremities exam: normal inspection - Vagina Vagina: Present: normal moisture - Cervix Dilation: 5 Effacement: 70 Station: -3 - Uterus Uterus exam: Present: normal size Results Result Diagrams: 11/27/17 08:30 11/27/17 08:30 All other labs normal. - VTE Reasons for not Prescribing Prophylaxis: Treatment not Indicated - Low risk for VTE - Attending Attestation I examined this patient and my medical decision-making was reviewed with the Resident Physician. I agree with the documented findings, disposition and treatment plan as described. Tessa Rivera CNM
[2017-11-27 09:25] LABS: Amphetamine Screen,Urine Negative ng/mL (Cutoff=1000); Barbiturate Screen,Urine Negative ng/mL (Cutoff=200); Cannabinoid Screen,Urine Negative ng/mL (Cutoff = 50); Cocaine Screen,Urine Negative ng/mL (Cutoff= 300); Opiate Screen,Urine Negative ng/mL (Cutoff=300); Phencyclidine Screen,Urine Negative ng/mL (Cutoff=25)
[2017-11-27 09:25] LABS: Basophils % 0.1 %; Eosinophils # 0.1 K/mcL (0.0-0.6); Eosinophils % 1.6 %; Hematocrit 33.2 % (35.3-44.9); Hemoglobin 11.2 g/dL (11.5-15.4); Immature Granulocytes % 0.8 % (0-4); Lymphocytes # 1.6 K/mcL (0.6-4.6); Lymphocytes % 18.1 %; Mean Corpuscular HGB Conc 33.7 g/dL (31.6-35.5); Mean Corpuscular Hemoglobin 30.4 pg (28.0-33.3); Monocytes # 0.6 K/mcL (0.0-1.3); Neutrophils # 6.6 K/mcL (1.6-8.9); Platelet Count 149 K/mcL (140-400); Red Blood Count 3.69 M/mcL (3.82-4.97); Red Cell Distribution Width 16.6 % (11.5-14.5); Segmented Neutrophils % 72.4 %
[2017-11-27 09:44] LABS: Alanine Aminotransferase 12 Units/L (7-52); Aspartate Amino Transferase 17 Units/L (13-39); BUN/Creatinine Ratio 15 (6-26); Blood Urea Nitrogen 7 mg/dL (6-20); Glucose 141 mg/dL (70-105); Lactate Dehydrogenase 199 Units/L (140-271); Uric Acid 4.7 mg/dL (2.3-7.6); eGFR For African Americans > 60 (> 60); eGFR For Non-African Americans > 60 (> 60)
[2017-11-27 11:04] LABS: Benzodiazepines Screen,Urine Negative ng/mL (Cutoff=200)
--- NOTE | 2017-11-27 11:07 | Anesthesia Evaluation PreOp ---
Date of Encounter: 11/27/17 Time of Encounter: 11:05 - Past History Planned Operation: LACEY Cardiac History: Denies any Significant Hx Pulmonary History: Former smoker (quit with , 2 year smoker, 1ppd), Pack/yr (2pk/yr) AREA OPERATIONS DIRECTOR History: Denies Any Significant HX Other Medical History: Other (gestational diabetes) Anesthesia History: No Prior Anesthetic Complications, Past Anesthesia (T&A, BMT , cyst extraction behind right ear, tubal ligation and reversal, Right knee MCL repair, wisdom teeth extraction.) : Yes Alcohol Use: none Drug use: none Medications and Allergies Metformin HCl [Fortamet] 1,000 mg PO BID 09/16/17 [History] Tablet 1 tab PO DAILY 09/16/17 [History] Progesterone 1 / IM QWEEK 09/16/17 [History] Insulin Lispro Protamin/Lispro [Humalog Mix 75-25 Kwikpen] 6 units SQ BID [History] 3 Allergy/AdvReac Type Severity Reaction Status Date / Time Cefaclor [[facility]] Allergy Hives Verified 11/17/17 12:22 Penicillins AdvReac Hives Verified 11/17/17 12:22 - Meds/Allergy Pre-op Review Medications Reviewed: Yes Allergies Reviewed: Yes Beta Blockers on Current Med List: No Anesthesia Results - Labs 11/27/17 08:30 11/27/17 08:30 Anesthesia Exam BP 139/80 P 99 T 98.0 R 16 Height: 5'3" Weight: 113kg NPO (# of Hours): 5hrs solids Pain Scale: 0 Pain Scale Used: Numeric (1 - 10) - HEENT Pupil (Motor): Pupils equal Mallampati: II Teeth: Normal Oral Opening: Greater than 3 - AREA OPERATIONS DIRECTOR LOC: Oriented AREA OPERATIONS DIRECTOR Motor: Normal RUE, Normal LUE, Normal RLE, Normal LLE, Normal Face AREA OPERATIONS DIRECTOR Sensory: Normal: RUE, LUE, RLE, LLE, Face - Cardiac Rhythm: Regular Murmur: None JVD: No Carotid Bruit: No - Pulmonary Breath Sounds: bilateral Clear Respiratory Effort: Symmetrical Anesthesia Assess/Plan ASA Score: 2 Modified [place] Scale for Level of Consciousness: Cooperative, oriented, and tranquil Anesthetic Plan: Regional Autologous Blood: No Monitoring Plan: Standard Monitors Recovery Plan: Other
[2017-11-27] MEDS: Ringers Solution, Lactated 1,000 ML IVC SCH ×2 (11:10→19:11)
--- NOTE | 2017-11-27 11:23 | OB Labor Progress Note ---
Date of Encounter: 11/27/17 Time of Encounter: 11:10 Labor Progress Note - Subjective Subjective: Patient resting in bed comfortably - Vital Signs Vital Signs: VSS - Cervix Cervix: 4/70/high - Heart Tones Heart Tones: 155 with moderate variability - [place]: No contractions noted - Plan Plan: Routine labor management GBS negative Start pitocin Patient may have nubain/epidural upon request Consider AROM when vertex is well applied Anticipate vaginal delivery POC per consult with Dr Bergman.
--- NOTE | 2017-11-27 15:31 | OB Labor Progress Note ---
Date of Encounter: 11/27/17 Time of Encounter: 15:27 Labor Progress Note - Subjective Subjective: Patient sitting in high fowlers in bed; comfortable - Vital Signs Vital Signs: VSS - Cervix Cervix: 4-5/70/-2-3 ballottable. - Heart Tones Heart Tones: 145 moderate variability and 15 x 15 accels - [place]: COntractions every 2-5 minutes - Plan Plan: Continue routine labor management Pain is well controlled. May have epidural/ nubain upon request GBS negative Pitocin infusing; titrate for adequate contractions Consider AROM when vertex is well applied Anticipate vaginal delivery POC per consult with Dr Bergman.
--- NOTE | 2017-11-27 18:46 | OB Labor Progress Note ---
Date of Encounter: 11/27/17 Time of Encounter: 18:42 Labor Progress Note - Subjective Subjective: Patient resting comfortably in bed. States pain is currently tolerable - Vital Signs Vital Signs: VSS - Cervix Cervix: 6/70/-1 - Heart Tones Heart Tones: 135 moderate variability with 15 x 15 accels - [place] D[place]: contractions every 3-4 minutes - Interventions Interventions: AROM for moderate amount of clear fluid. - Plan Plan: Continue routine labor management GBS negative Continue pitocin for adequate labor contractions Patient may have nubain and/or epidural when requested per protocol Anticipate vaginal delivery POC per consult with Dr Bergman.
[2017-11-27] MEDS ORDERED: *HR* FentaNYL (PF) 100 MCG/2 ML VIAL EP ONE (19:32)
[2017-11-27] MEDS ORDERED: EPHEDrine 50 MG/ML VIAL IVP PRN (19:32)
[2017-11-27] MEDS ORDERED: Bupivacaine-MPF 0.25% 10 ML VIAL EP ONE (19:32)
[2017-11-27] MEDS ORDERED: *HR* FentaNYL (PF) 100 MCG/2 ML VIAL ONE (19:35)
[2017-11-27] MEDS ORDERED: Bupivacaine-MPF 0.25% 10 ML VIAL ONE (19:36)
[2017-11-27] MEDS ORDERED: Epidural Premix (fent/bupiv) 110 ML EP ONE (19:37)
[2017-11-27] MEDS ORDERED: Epidural Premix (fent/bupiv) 110 ML EP SCH (19:45)
[2017-11-27] MEDS ORDERED: ROPIVACAINE HCL/PF 0.5% 30 ML VIAL ONE (21:09)
--- NOTE | 2017-11-27 21:36 | Anesthesia Progress Note ---
Date of Encounter: 11/27/17 Time of Encounter: 21:34 Anesthesia Note - Note Note: 11/27/17 21:34 Pt complaining of pain spanning across lower abdomen with contractions. Epidural bolus administered 5ml Ropivicaine 0.5% with 0.9% NS 5ml. Pt discomfort eased post bolus. BP 132/71 P 89
--- NOTE | 2017-11-27 22:14 | Anesthesia Progress Note ---
Date of Encounter: 11/27/17 Time of Encounter: 21:50 Anesthesia Note - Note Note: 11/27/17 22:08 Pt continued to complain of pain with only little relief from bolus. Further assessment of catheter revealed that it was misplaced to 5cm at skin from 15cm at original placement, and the tape had been rolled up from patient movement. After discussion with patient and her options, it was decided that another epidural would be placed.
--- NOTE | 2017-11-27 22:17 | Anesthesia Procedures ---
Date of Encounter: 11/27/17 Time of Encounter: 21:50 Procedures: Anesthesia - Epidural/Spinal Patient ID/Chart reviewed: Yes Patient examined: Yes OB Eval: Gestational age: 38 OB Eval: : 3 OB Eval: Hx Para: 2 OB Eval: Dilated at (cm): 7 OB Eval: Contractions: Non-stressed pattern Consent Obtained: Yes Supplemental Oxygen: None/Room Air Site Prep: Aseptic Technique, Sterile prep and drape, Povidone-Iodine 1% Patient position: upright Local Anesthetic: Lidocaine 1% Amount of Local Anesthetic used: 3 Touhy Needle Gauge: 18 Touhy Needle Depth (cm): 7 Catheter Depth at Skin (cm): 16 Test Dose (1.5% Lido + Epi): Volume given (mls): 3 Test Dose Result: Negative Infusion Med: 0.125% Bupivacaine w/ 2 mcg/ml Fentanyl Infusion Rate (mls/hr): [address]: Tegaderm, Tape Interspace Used: L3-L4 Loss of Resistance (KIM): Yes Blood: No CSF: No Paresthesia: No Procedure: Previously placed epidural was discontinued intact. New epidural placed at L3-4 in upright position without any immediate noted complications. VSS throughout. Vitals + FHT's: See nursing notes.
--- NOTE | 2017-11-27 22:53 | Anesthesia Procedures ---
Date of Encounter: 11/27/17 Time of Encounter: 17:40 Procedures: Anesthesia - Epidural/Spinal Patient ID/Chart reviewed: Yes Patient examined: Yes OB Eval: Gestational age: 38 OB Eval: : 3 OB Eval: Hx Para: 2 OB Eval: Dilated at (cm): 6 OB Eval: Contractions: Non-stressed pattern Consent Obtained: Yes Site Prep: Aseptic Technique, Sterile prep and drape, Povidone-Iodine 1% Patient position: upright Local Anesthetic: Lidocaine 1% Amount of Local Anesthetic used: 3 Touhy Needle Depth (cm): 6 Catheter Depth at Skin (cm): 15 Test Dose (1.5% Lido + Epi): Volume given (mls): 3 Test Dose Result: Negative Loading Dose: 0.25% Marcaine (mls): 10 Loading Dose: Fentanyl (mcg): 100 Loading Dose Administered: Thru Catheter Infusion Med: 0.125% Bupivacaine w/ 2 mcg/ml Fentanyl Infusion Rate (mls/hr): [address]: Tegaderm, Tape Interspace Used: L4-L5 Loss of Resistance (KIM): Yes Blood: No CSF: No Paresthesia: No Procedure: LACEY placed in upright position 1st pass without any immediate noted complications. VSS throughout. Vitals + FHT's: 1740 BP 150 P 76/88 R 18 1800 BP 137/67 P 86 R 16
--- NOTE | 2017-11-27 23:28 | OB/GYN Procedure Note ---
Delivery - Delivery Date: 11/27/17 Provider: Kristy Rivera (Jasen Poole DO PGY-1) Intrapartum events: none Delivery induction: misoprostol Delivery augmentation: rupture of membranes, pitocin Delivery monitor: external FHT, external uterine Anesthesia: epidural Estimated Blood Loss: 200 - (s) Infant A Infant Delivery Date: 11/27/17 Infant Delivery Time: 23:11 Presentation: vertex Position: OP Route of delivery: Gender: Female Viability: Viable Pounds: 7 Ounces: 4 Weight Gram: 3.28 kg at 1 minute: 8 at 5 mins: 9 Shoulder Dystocia: not encountered Placenta: spontaneous Cord: delivered through nuchal - Repair Episiotomy: none Laceration Description: None - Complications Delivery complications: meconium Delivery comments: of vigorous viable female infant in the OP position. Shoulders delivered easily. Delivered through nuchal. Terminal meconium. No shoulder dystosia. placed on mom's belly. Apgars 8/9 at 1 and 5 minutes. Cord double clamped and cut after pulsations ceased. Placenta delivered spontaneously appears grossly intact. 3 vessel cord present. Upon peritoneal inspection, no lacerations were noted. Fundus firm and at u/2. EBL 200ml. delivery attended by Jasen Poole DO PGY-1. Kristy Rivera CNM present in room for delivery. Dr. Bergman notified. and mother stable in recovery. Pericare instructions given to patient. - Disposition Mom disposition: stable in LDR [place] disposition: stable in LDR
[2017-11-27] MEDS ORDERED: Oxytocin 20 units/ LR 1000 mL 20 UNIT/1,000 ML BAG IVC ONE (23:47)
[2017-11-27] MEDS ORDERED: Benzocaine/Menthol 56 GM AEROSOL SPRAY TP PRN (23:47)
[2017-11-27] MEDS ORDERED: Sennosides 8.6 MG TABLET PO PRN (23:47)
[2017-11-27] MEDS ORDERED: Measles/Mumps/Rubella Vacc 0.5 ML VIAL SQ PRN (23:47)
[2017-11-27] MEDS ORDERED: Acetaminophen 325 MG TABLET PO PRN (23:47)
[2017-11-28] MEDS: Ibuprofen 600 MG TABLET PO PRN ×2 (03:02→20:21)
[2017-11-28] MEDS ORDERED: Prenatal Vit/FA 1 EACH TABLET PO SCH (09:00)
--- NOTE | 2017-11-28 09:49 | Discharge Summary ---
Date of Encounter: 11/28/17 Time of Encounter: 09:47 - Discharge Diagnosis (1) Vaginal delivery Priority: Primary Status: Acute Comments: Pt meeting milestones. She is requesting discharge home at 24 hours . (2) GDM, class A2 Priority: Secondary Status: Acute Comments: Pt will need 2 hour GTT in 6 weeks. - Discharge Medications Prescriptions: Ibuprofen [Motrin] 600 mg PO Q6HR PRN #30 tablet PRN Reason: Cramping Docusate [Colace] 100 mg PO BID #30 capsule Norethindrone 0.35 mg PO DAILY #30 tablet Home Medications: Tablet 1 tab PO DAILY 09/16/17 [History] Benzocaine/Menthol [place] [Dermoplast [place]] 1 appl TP QID PRN aerosol 11/28/17 [Rx] Docusate [Colace] 100 mg PO BID #30 capsule 11/28/17 [Rx] Ibuprofen [Motrin] 600 mg PO Q6HR PRN #30 tablet 11/28/17 [Rx] Norethindrone 0.35 mg PO DAILY #30 tablet 11/28/17 [Rx] Allergies/Adverse Reactions: 3 Allergy/AdvReac Type Severity Reaction Status Date / Time Cefaclor [From [facility]] Allergy Hives Verified 11/17/17 12:22 Penicillins AdvReac Hives Verified 11/17/17 12:22 Data Procedures and tests throughout hospitalization: Laboratory Tests 11/27/17 11/27/17 11/27/17 08:30 08:30 08:33 WBC 9.0 RBC 3.69 L Hgb 11.2 L Hct 33.2 L MCV 90.0 MCH 30.4 MCHC 33.7 RDW 16.6 H Plt Count 149 MPV 10.0 Immature Gran % 0.8 Seg Neutrophils % 72.4 Lymphocytes % 18.1 Monocytes % 7.0 Eosinophils % 1.6 Basophils % 0.1 Neutrophils # 6.6 Lymphocytes # 1.6 Monocytes # 0.6 Eosinophils # 0.1 Basophils # 0.0 BUN 7 Creatinine 0.48 L Est GFR ( Amer) > 60 Est GFR (Non-Af Amer) > 60 BUN/Creatinine Ratio 15 Glucose 141 H POC Glucose Uric Acid 4.7 AST 17 ALT 12 Lactate Dehydrogenase 199 Urine Opiates Screen Negative Ur Barbiturates Screen Negative Ur Phencyclidine Scrn Negative Ur Amphetamines Screen Negative U Benzodiazepines Scrn Negative Urine Cocaine Screen Negative U Marijuana (THC) Screen Negative 11/27/17 11/27/17 11/27/17 10:19 12:05 14:02 WBC RBC Hgb Hct MCV MCH MCHC RDW Plt Count MPV Immature Gran % Seg Neutrophils % Lymphocytes % Monocytes % Eosinophils % Basophils % Neutrophils # Lymphocytes # Monocytes # Eosinophils # Basophils # BUN Creatinine Est GFR ( Amer) Est GFR (Non-Af Amer) BUN/Creatinine Ratio Glucose POC Glucose 122 H 97 H 96 H Uric Acid AST ALT Lactate Dehydrogenase Urine Opiates Screen Ur Barbiturates Screen Ur Phencyclidine Scrn Ur Amphetamines Screen U Benzodiazepines Scrn Urine Cocaine Screen U Marijuana (THC) Screen 11/27/17 11/27/17 11/27/17 16:03 18:06 20:49 WBC RBC Hgb Hct MCV MCH MCHC RDW Plt Count MPV Immature Gran % Seg Neutrophils % Lymphocytes % Monocytes % Eosinophils % Basophils % Neutrophils # Lymphocytes # Monocytes # Eosinophils # Basophils # BUN Creatinine Est GFR ( Amer) Est GFR (Non-Af Amer) BUN/Creatinine Ratio Glucose POC Glucose 90 H 123 H 89 Uric Acid AST ALT Lactate Dehydrogenase Urine Opiates Screen Ur Barbiturates Screen Ur Phencyclidine Scrn Ur Amphetamines Screen U Benzodiazepines Scrn Urine Cocaine Screen U Marijuana (THC) Screen Labs on day of discharge: Labs from last 24 hours 11/27/17 11/27/17 11/27/17 20:49 18:06 16:03 POC Glucose 89 123 H 90 H Urine Opiates Screen Ur Barbiturates Screen Ur Phencyclidine Scrn Ur Amphetamines Screen U Benzodiazepines Scrn Urine Cocaine Screen U Marijuana (THC) Screen 11/27/17 11/27/17 11/27/17 14:02 12:05 10:19 POC Glucose 96 H 97 H 122 H Urine Opiates Screen Ur Barbiturates Screen Ur Phencyclidine Scrn Ur Amphetamines Screen U Benzodiazepines Scrn Urine Cocaine Screen U Marijuana (THC) Screen 11/27/17 08:33 POC Glucose Urine Opiates Screen Negative Ur Barbiturates Screen Negative Ur Phencyclidine Scrn Negative Ur Amphetamines Screen Negative U Benzodiazepines Scrn Negative Urine Cocaine Screen Negative U Marijuana (THC) Screen Negative Date of admission: 11/27/17 08:17 Primary care physician: PCP NONE Discharging clinician: Caroline Kaufman Anticipated date of discharge: 11/28/17 - Patient Status Disposition: Home, Self-Care Condition: Good Functional capacity at discharge: independent ambulation Overall status at discharge: patient is progressing back to baseline - Discharge Instructions Follow Up With: NONE,PCP [Primary Care Provider] - Andres Chacon MD [Partnered Physician] - - Diet and Activity Activity: increase activity as tolerated Diet: regular diet Hospital Course Reason for admission: induction of labor Delivery: Episiotomy: none Laceration: none Other procedures: none complications: none Discharge diagnosis: IUP at term delivered [place] baby: female Hospital course: - Delivery Date: 11/27/17 Provider: Kristy Rivera DO PGY-1) Intrapartum events: none Delivery induction: misoprostol Delivery augmentation: rupture of membranes, pitocin Delivery monitor: external FHT, external uterine Anesthesia: epidural Estimated Blood Loss: 200 - (s) A Delivery Date: 11/27/17 Infant Delivery Time: 23:11 Presentation: vertex Position: OP Route of delivery: Gender: Female Viability: Viable Pounds: 7 Ounces: 4 Weight Gram: 3.28 kg at 1 minute: 8 at 5 mins: 9 Shoulder Dystocia: not encountered Placenta: spontaneous Cord: delivered through nuchal - Repair Episiotomy: none Laceration Description: None - Complications Delivery complications: meconium course: uncomplicated, bottle feeding, discharged home with Micronor for contraception Time Attestation: Total time spent providing and/or coordinating discharge services: Time Spent: Less than 30 minutes Exam - Constitutional Vitals: Temp Pulse Resp BP Pulse Ox 97.8 F 80 16 114/76 98 11/28/17 08:24 11/28/17 08:33 11/28/17 08:33 11/28/17 08:24 11/28/17 04:00 General appearance IM: A&O X 3, pleasant, no acute distress - Respiratory Respiratory exam: Present: CTAB - Cardiovascular Cardiovascular exam IM: Present: RRR, +S1, +S2 - GI/Abdominal GI/Abdominal exam IM: soft - Rectal Rectal exam: deferred - Uterine Tone: Firm Uterus Position: 1 Finger Below Umbilicus - Extremities Exam Extremities exam IM: Present: normal inspection, pedal edema (mild bilaterally) - Neurological Exam Neurological exam: normal gait, oriented X3 - Psychiatric Additional comments: reports good mood - Other Additional findings: Plan of care discussed with Dr. Bergman
[2017-11-28 21:06] VITALS: BP 132/87
== END 2017-11-29 00:35 | disposition home or self-care (01) | DRG 560 ==
LOC: 1NENULAB 08:17 → 1NENUOBS 11-28 02:03
PROVIDERS: ADMIT Obstetrics & Gynecology; ATTEND Obstetrics & Gynecology